=== PATIENT | female | born 1955 | race Caucasian/White ===

== ENCOUNTER 2019-06-15 05:01 | Emergency (ER) | payer BC ==
[~2019-06-15] VITALS: Ht 157.5 cm; Wt 92.8 kg
[2019-06-15] MEDS ORDERED: ONDANSETRON ODT 4 MG ONE (05:22)
[2019-06-15] MEDS ORDERED: MECLIZINE CHEWABLE 25 MG TAB ONE (05:23)
--- NOTE | 2019-06-15 05:29 | NUR ---
VERBAL ORDER FROM DR. MATSON PT MEDICATED 5 RIGHTS VERIFIED.
[2019-06-15] MEDS ORDERED: MECLIZINE CHEWABLE 25 MG TAB PO ONE (05:30)
[2019-06-15] MEDS ORDERED: ONDANSETRON ODT 4 MG PO ONE (05:30)
--- NOTE | 2019-06-15 06:15 | NUR ---
PT REPORTS SOME IMPROVEMENT SINCE MEDICATION. MD TO BE UPDATED.
[2019-06-15 06:23] LABS: BASOPHILS # (AUTO) 0.02 x10^3/uL (0-0.1); BASOPHILS % (AUTO) 0 % (0-1); EOSINOPHILS # (AUTO) 0.13 x10^3/uL (0-0.4); EOSINOPHILS % (AUTO) 2 % (1-7); LYMPHOCYTES # (AUTO) 1.28 x10^3/uL (1-3.4); LYMPHOCYTES % (AUTO) 18 % (22-44); MD NO; MEAN CORPUSCULAR HEMOGLOBIN 29.1 pg (27.0-34.8); MEAN CORPUSCULAR HGB CONC 33.6 g/dL (32.4-35.8); MEAN CORPUSCULAR VOLUME 86.7 fL (80-100); MEAN PLATELET VOLUME 7.5 fL (7.4-10.4); MONOCYTES % (AUTO) 7 % (2-9); NEUTROPHILS # (AUTO) 5.12 x10^3/uL (1.8-6.8); NEUTROPHILS % (AUTO) 73 % (42-75); PLATELET COUNT 267 x10^3/uL (130-400); RED BLOOD COUNT 5.08 x10^6/uL (3.82-5.3); RED CELL DISTRIBUTION WIDTH 14.3 % (9.6-15.2)
[2019-06-15 06:34] LABS: ALANINE AMINOTRANSFERASE 42 U/L (12-78); ALBUMIN 3.4 g/dL (3.4-5.0); ANION GAP 10 mmol/L (5-15); CALCIUM 9.1 mg/dL (8.5-10.1); CHLORIDE 110 mmol/L (98-107)
--- NOTE | 2019-06-15 06:34 | NUR ---
ERP AT BEDSIDE TO REASSESS PT AND DISCUSS POC
[2019-06-15 06:37] LABS: ALKALINE PHOSPHATASE 106 U/L (45-117); BILIRUBIN,TOTAL 0.4 mg/dL (0.2-1.0); TOTAL PROTEIN 6.9 g/dL (6.4-8.2)
--- NOTE | 2019-06-15 07:13 | NUR ---
D/C INSTRUCTIONS, MEDS & F/U APPT RV'WD WITH PT, SHE VERBALIZES UNDERSTANDING. RX GIVEN X2. PT ASSISTED OUT OF ED VIA WC AND MET OUTSIDE. Addendum: 06/15/19 at 0716 by RIVERA INSTRUCTED PT TO RETURN TO ED OR F/U WITH PCP IF SYMPTOMS NOT RESOLVING WITH RX.
[2019-06-15 07:15] VITALS: BP 120/72
== END 2019-06-15 07:31 | disposition home or self-care (01) ==
LOC: ED 05:24
DX: R42 Dizziness and giddiness (principal); R51 Headache; R11.2 Nausea with vomiting, unspecified; R94.31 Abnormal electrocardiogram [ECG] [EKG]
CPT/HCPCS: 36415; 70450; 80053; 85025; 93005; 99285; Q0162